=== PATIENT | female | born 1930 | race Asian ===

== ENCOUNTER 2017-10-23 06:13 | Inpatient (IN) | payer MEDICARE, OTHER ==
[2017-10-23] MEDS: SOD CHLORIDE 0.9% 1,000 ML IV (06:23)
[2017-10-23] MEDS: morphine 4 MG/ML VIAL IV ×2 (06:43→17:26)
[2017-10-23] MEDS: ONDANSETRON 4 MG INJ IV (06:43)
[2017-10-23 06:48] LABS: ADD MAN DIFF? NO
[2017-10-23 06:49] LABS: ABNORMAL IP MESSAGE 1; BASOPHILS % 0.2 % (0.0-2.0); EOSINOPHILS % 0.2 % (0.0-7.0); HEMOGLOBIN 9.7 g/dl (12.0-16.0); LYMPHOCYTES # 0.3 10^3/ul (0.8-2.9); LYMPHOCYTES % 4.3 % (15.0-51.0); MEAN CORPUSCULAR HEMOGLOBIN 32.2 pg (29.0-33.0); MEAN CORPUSCULAR HGB CONC 33.4 g/dl (32.0-37.0); MEAN CORPUSCULAR VOLUME 96.3 fl (82.0-101.0); MEAN PLATELET VOLUME 8.5 fl (7.4-10.4); MONOCYTE # 0.4 10^3/ul (0.3-0.9); MONOCYTES % 5.6 % (0.0-11.0); NEUTROPHIL # 5.6 10^3/ul (1.6-7.5); NEUTROPHILS % 88.6 % (39.0-77.0); PLATELET COUNT 279 10^3/UL (140-415); RED BLOOD COUNT 3.01 10^6/ul (4.20-5.40); RED CELL DISTRIBUTION WIDTH 13.2 % (11.5-14.5)
[2017-10-23 06:49] LABS: WHITE BLOOD COUNT 6.3 10^3/ul (4.8-10.8)
[2017-10-23 06:54] LABS: POSITIVE DIFF @See below
[2017-10-23 07:09] LABS: INR 0.81; PARTIAL THROMBOPLASTIN TIME 25.8 Sec (25.0-35.0); PROTIME 11.2 Sec (11.9-14.9); PT RATIO 0.9
[2017-10-23 07:11] LABS: ANION GAP 17 (8-16); BLOOD UREA NITROGEN 22 mg/dl (7-20); CALCIUM 9.2 mg/dl (8.4-10.2); CARBON DIOXIDE 23 mmol/L (21-31); CHLORIDE 101 mmol/L (97-110); GLUCOSE 112 mg/dl (70-220); POTASSIUM 4.5 mmol/L (3.5-5.1); SODIUM 136 mmol/L (135-144)
[2017-10-23 07:23] LABS: TROPONIN-I < 0.010 ng/ml (0.000-0.120)
[2017-10-23] MEDS ORDERED: ACETAMINOPHEN 325 MG TAB PO (11:30)
[2017-10-23] MEDS ORDERED: ONDANSETRON 4 MG INJ IV (11:30)
[2017-10-23] MEDS ORDERED: HYDROmorphONE 1 MG/ML SYG IV (18:30)
[2017-10-23] MEDS ORDERED: GLUCOSE GEL 15 GRAM TUBE PO ×2 (19:00)
[2017-10-23] MEDS ORDERED: GLUCOSE GEL 15 GRAM TUBE BUCCAL (19:00)
[2017-10-23] MEDS ORDERED: DEXTROSE 50% 50 ML SYRINGE IV ×2 (19:00)
[2017-10-23] MEDS ORDERED: GLUCAGON 1 MG INJ IM (19:00)
[2017-10-23] MEDS: INSULIN ASPART [NOVOLOG] 3 ML PEN SC (21:00)
[2017-10-24] MEDS: ACCU-CHEK XX (01:04)
[2017-10-24 05:46] LABS: ADD MAN DIFF? NO
[2017-10-24 05:56] LABS: WHITE BLOOD COUNT 5.7 10^3/ul (4.8-10.8)
[2017-10-24 05:56] LABS: ABNORMAL IP MESSAGE 1; BASOPHILS % 0.2 % (0.0-2.0); EOSINOPHILS # 0.1 10^3/ul (0.0-0.5); EOSINOPHILS % 1.4 % (0.0-7.0); HEMATOCRIT 27.5 % (37.0-47.0); HEMOGLOBIN 8.9 g/dl (12.0-16.0); LYMPHOCYTES # 0.5 10^3/ul (0.8-2.9); MEAN CORPUSCULAR HEMOGLOBIN 31.8 pg (29.0-33.0); MEAN CORPUSCULAR HGB CONC 32.4 g/dl (32.0-37.0); MEAN CORPUSCULAR VOLUME 98.2 fl (82.0-101.0); MEAN PLATELET VOLUME 8.9 fl (7.4-10.4); MONOCYTE # 0.3 10^3/ul (0.3-0.9); MONOCYTES % 5.1 % (0.0-11.0); NEUTROPHIL # 4.8 10^3/ul (1.6-7.5); NEUTROPHILS % 83.6 % (39.0-77.0); PLATELET COUNT 231 10^3/UL (140-415); RED CELL DISTRIBUTION WIDTH 13.6 % (11.5-14.5)
[2017-10-24 05:59] LABS: POSITIVE DIFF @See below
[2017-10-24 06:39] LABS: ANION GAP 11 (8-16); BLOOD UREA NITROGEN 19 mg/dl (7-20); CALCIUM 8.8 mg/dl (8.4-10.2); CARBON DIOXIDE 25 mmol/L (21-31); CHLORIDE 105 mmol/L (97-110); CREATININE 0.73 mg/dl (0.44-1.00); GLUCOSE 81 mg/dl (70-220); POTASSIUM 4.7 mmol/L (3.5-5.1); SODIUM 136 mmol/L (135-144)
[2017-10-24] MEDS: INSULIN ASPART [NOVOLOG] 3 ML PEN SC ×4 (08:15→21:00)
[2017-10-24] MEDS: BENAZEPRIL 20 MG TAB PO (08:30)
[2017-10-24] MEDS: ENOXAPARIN 30 MG/0.3 ML SYG SC (08:33)
[2017-10-24] MEDS ORDERED: HYDROmorphONE 2 MG/ML SYG IV (11:58)
[2017-10-24] MEDS: traMADol 50 MG TAB PO (14:15)
[2017-10-24 20:27] LABS: ADD MAN DIFF? NO
[2017-10-24 20:28] LABS: ABNORMAL IP MESSAGE 1; BASOPHILS % 0.3 % (0.0-2.0); EOSINOPHILS # 0.1 10^3/ul (0.0-0.5); EOSINOPHILS % 0.7 % (0.0-7.0); HEMATOCRIT 27.1 % (37.0-47.0); LYMPHOCYTES # 0.4 10^3/ul (0.8-2.9); LYMPHOCYTES % 6.1 % (15.0-51.0); MEAN CORPUSCULAR HEMOGLOBIN 32.5 pg (29.0-33.0); MEAN CORPUSCULAR HGB CONC 33.2 g/dl (32.0-37.0); MEAN CORPUSCULAR VOLUME 97.8 fl (82.0-101.0); MEAN PLATELET VOLUME 8.2 fl (7.4-10.4); MONOCYTE # 0.3 10^3/ul (0.3-0.9); MONOCYTES % 4.6 % (0.0-11.0); NEUTROPHIL # 6.4 10^3/ul (1.6-7.5); NEUTROPHILS % 87.9 % (39.0-77.0); PLATELET COUNT 217 10^3/UL (140-415); RED BLOOD COUNT 2.77 10^6/ul (4.20-5.40); RED CELL DISTRIBUTION WIDTH 13.2 % (11.5-14.5)
[2017-10-24 20:28] LABS: WHITE BLOOD COUNT 7.3 10^3/ul (4.8-10.8)
[2017-10-24 20:30] LABS: POSITIVE DIFF @See below
[2017-10-24 20:45] LABS: ALANINE AMINOTRANSFERASE 74 IU/L (13-69); ALBUMIN 3.2 g/dl (3.3-4.9); ALKALINE PHOSPHATASE 107 IU/L (42-121); ANION GAP 13 (8-16); ASPARTATE AMINO TRANSFERASE 38 IU/L (15-46); BILIRUBIN,INDIRECT 0.7 mg/dl (0-1.1); BILIRUBIN,TOTAL 0.7 mg/dl (0.2-1.3); BLOOD UREA NITROGEN 16 mg/dl (7-20); CALCIUM 8.6 mg/dl (8.4-10.2); CARBON DIOXIDE 25 mmol/L (21-31); CHLORIDE 100 mmol/L (97-110); CREATININE 0.77 mg/dl (0.44-1.00); GLUCOSE 131 mg/dl (70-220); POTASSIUM 4.6 mmol/L (3.5-5.1); SODIUM 133 mmol/L (135-144); TOTAL PROTEIN 6.1 g/dl (6.1-8.1)
[2017-10-24 20:47] LABS: INR 0.88; PT RATIO 0.9
[2017-10-24 20:48] LABS: PARTIAL THROMBOPLASTIN TIME 30.9 Sec (25.0-35.0)
[2017-10-24] MEDS: SOD CHLORIDE 0.9% 1,000 ML IV ×2 (23:32→23:39)
[2017-10-25] MEDS: ACCU-CHEK XX (01:40)
[2017-10-25 06:15] LABS: ADD MAN DIFF? NO
[2017-10-25 06:17] LABS: ABNORMAL IP MESSAGE 1; BASOPHILS % 0.1 % (0.0-2.0); EOSINOPHILS # 0.1 10^3/ul (0.0-0.5); HEMATOCRIT 28.3 % (37.0-47.0); HEMOGLOBIN 9.2 g/dl (12.0-16.0); LYMPHOCYTES # 0.5 10^3/ul (0.8-2.9); MEAN CORPUSCULAR HEMOGLOBIN 31.7 pg (29.0-33.0); MEAN CORPUSCULAR HGB CONC 32.5 g/dl (32.0-37.0); MEAN CORPUSCULAR VOLUME 97.6 fl (82.0-101.0); MEAN PLATELET VOLUME 8.9 fl (7.4-10.4); MONOCYTE # 0.3 10^3/ul (0.3-0.9); MONOCYTES % 4.3 % (0.0-11.0); NEUTROPHIL # 5.8 10^3/ul (1.6-7.5); PLATELET COUNT 231 10^3/UL (140-415); RED CELL DISTRIBUTION WIDTH 13.4 % (11.5-14.5)
[2017-10-25 06:17] LABS: WHITE BLOOD COUNT 6.7 10^3/ul (4.8-10.8)
[2017-10-25 06:50] LABS: POSITIVE DIFF @See below
[2017-10-25 06:54] LABS: ANION GAP 13 (8-16); BLOOD UREA NITROGEN 14 mg/dl (7-20); CALCIUM 8.8 mg/dl (8.4-10.2); CARBON DIOXIDE 25 mmol/L (21-31); CHLORIDE 103 mmol/L (97-110); CREATININE 0.66 mg/dl (0.44-1.00); GLUCOSE 105 mg/dl (70-220); MAGNESIUM 2.1 mg/dl (1.7-2.5); POTASSIUM 4.7 mmol/L (3.5-5.1); SODIUM 136 mmol/L (135-144)
[2017-10-25 06:59] LABS: IRON 42 ug/dl (35-150)
[2017-10-25 07:09] LABS: % IRON SATURATION 17 % SAT (22-52); TOTAL IRON BINDING CAPACITY 248 ug/dl (241-421)
[2017-10-25] MEDS: INSULIN ASPART [NOVOLOG] 3 ML PEN SC ×4 (08:04→21:00)
[2017-10-25] MEDS: BENAZEPRIL 20 MG TAB PO (08:04)
[2017-10-25] MEDS: ENOXAPARIN 30 MG/0.3 ML SYG SC (08:04)
[2017-10-25 12:13] LABS: IMMEDIATE SPIN CROSSMATCH 1 2
[2017-10-25] MEDS: SOD CHLORIDE 0.9% 1,000 ML IV ×2 (12:50)
[2017-10-26] MEDS: ACCU-CHEK XX (02:00)
[2017-10-26] MEDS: SOD CHLORIDE 0.9% 1,000 ML IV ×3 (02:10→18:44)
[2017-10-26] MEDS: FERROUS SULFATE 60 MG/ML 5ML CUP PO ×3 (06:54→17:44)
[2017-10-26] MEDS: INSULIN ASPART [NOVOLOG] 3 ML PEN SC ×4 (07:49→21:00)
[2017-10-26] MEDS: BENAZEPRIL 20 MG TAB PO (08:53)
[2017-10-26] MEDS: AMLODIPINE 5 MG TAB PO (08:53)
[2017-10-26] MEDS: ENOXAPARIN 30 MG/0.3 ML SYG SC (09:00)
[2017-10-26] MEDS: NA PHOSPHATE/BIPHOS 133 ML ENEMA PR (16:57)
[2017-10-26] MEDS: traMADol 50 MG TAB PO (17:46)
[2017-10-26] MEDS: DOCUSATE SODIUM 100 MG CAP PO (21:01)
[2017-10-27] MEDS: INSULIN ASPART [NOVOLOG] 3 ML PEN SC ×7 (01:31→21:00)
[2017-10-27] MEDS: ACCU-CHEK XX (01:31)
[2017-10-27] MEDS: SOD CHLORIDE 0.9% 1,000 ML IV ×4 (04:50→21:31)
[2017-10-27] MEDS: FERROUS SULFATE 60 MG/ML 5ML CUP PO ×3 (07:30→21:31)
[2017-10-27] MEDS: ENOXAPARIN 30 MG/0.3 ML SYG SC (08:47)
[2017-10-27] MEDS: DOCUSATE SODIUM 100 MG CAP PO ×2 (09:00→21:00)
[2017-10-27 09:05] LABS: ADD MAN DIFF? NO
[2017-10-27 09:06] LABS: ABNORMAL IP MESSAGE 1; BASOPHILS % 0.1 % (0.0-2.0); EOSINOPHILS # 0.1 10^3/ul (0.0-0.5); EOSINOPHILS % 1.3 % (0.0-7.0); HEMATOCRIT 31.4 % (37.0-47.0); HEMOGLOBIN 10.8 g/dl (12.0-16.0); LYMPHOCYTES # 0.5 10^3/ul (0.8-2.9); LYMPHOCYTES % 6.4 % (15.0-51.0); MEAN CORPUSCULAR HGB CONC 34.4 g/dl (32.0-37.0); MEAN PLATELET VOLUME 8.7 fl (7.4-10.4); MONOCYTE # 0.3 10^3/ul (0.3-0.9); NEUTROPHIL # 6.6 10^3/ul (1.6-7.5); NEUTROPHILS % 87.7 % (39.0-77.0); PLATELET COUNT 214 10^3/UL (140-415); RED BLOOD COUNT 3.27 10^6/ul (4.20-5.40); RED CELL DISTRIBUTION WIDTH 13.2 % (11.5-14.5)
[2017-10-27 09:06] LABS: WHITE BLOOD COUNT 7.5 10^3/ul (4.8-10.8)
[2017-10-27 09:09] LABS: POSITIVE DIFF @See below
[2017-10-27] MEDS ORDERED: hydrALAzine 20 MG INJ IV (17:30)
[2017-10-27] MEDS ORDERED: DIPHENHYDRAMINE 50 MG INJ IV (17:30)
[2017-10-27] MEDS ORDERED: LABETALOL HCL 20MG INJ IV (17:30)
[2017-10-27] MEDS ORDERED: FENTAnyl 50 MCG/ML VIAL (17:42)
[2017-10-27] MEDS ORDERED: MIDAZOLAM 1 MG/ML 2 ML INJ (17:42)
[2017-10-27] MEDS ORDERED: ROCURONIUM 50 MG INJ (19:14)
[2017-10-27] MEDS ORDERED: ETOMIDATE 20 MG INJ (19:14)
[2017-10-27] MEDS ORDERED: LIDOCAINE 2% (SDV) 5 ML INJ (19:14)
[2017-10-27] MEDS ORDERED: CEFAZOLIN 1 GM INJ (19:14)
[2017-10-27] MEDS ORDERED: ONDANSETRON 4 MG INJ (19:19)
[2017-10-27] MEDS ORDERED: morphine 2 MG INJ IV (19:30)
[2017-10-27] MEDS: HYDROmorphONE 1 MG/5 ML IV SYRINGE IV ×5 (19:47→20:21)
[2017-10-27] MEDS: CEFAZOLIN 1 GM/50 ML (PMX) 50 ML IVPB (20:00)
[2017-10-27 20:15] LABS: ADD MAN DIFF? NO
[2017-10-27 20:16] LABS: WHITE BLOOD COUNT 8.7 10^3/ul (4.8-10.8)
[2017-10-27 20:16] LABS: BASOPHILS % 0.1 % (0.0-2.0); EOSINOPHILS % 0.5 % (0.0-7.0); HEMATOCRIT 32.3 % (37.0-47.0); HEMOGLOBIN 10.9 g/dl (12.0-16.0); LYMPHOCYTES # 0.6 10^3/ul (0.8-2.9); LYMPHOCYTES % 7.2 % (15.0-51.0); MEAN CORPUSCULAR HGB CONC 33.7 g/dl (32.0-37.0); MEAN CORPUSCULAR VOLUME 94.7 fl (82.0-101.0); MEAN PLATELET VOLUME 8.9 fl (7.4-10.4); MONOCYTE # 0.4 10^3/ul (0.3-0.9); NEUTROPHIL # 7.6 10^3/ul (1.6-7.5); NEUTROPHILS % 87.6 % (39.0-77.0); PLATELET COUNT 200 10^3/UL (140-415); RED BLOOD COUNT 3.41 10^6/ul (4.20-5.40); RED CELL DISTRIBUTION WIDTH 13.2 % (11.5-14.5)
[2017-10-27] MEDS: ONDANSETRON 4 MG INJ IV (20:21)
[2017-10-27] MEDS: FENTAnyl 50 MCG/ML VIAL IV (20:37)
[2017-10-27] MEDS: BENAZEPRIL 20 MG TAB PO (21:30)
[2017-10-27] MEDS: AMLODIPINE 5 MG TAB PO (21:31)
[2017-10-28] MEDS: INSULIN ASPART [NOVOLOG] 3 ML PEN SC ×5 (01:00→20:40)
[2017-10-28] MEDS: ACCU-CHEK XX (01:16)
[2017-10-28] MEDS ORDERED: ACCU-CHEK XX (02:00)
[2017-10-28] MEDS: SOD CHLORIDE 0.9% 1,000 ML IV ×3 (04:31→23:43)
[2017-10-28 05:55] LABS: ADD MAN DIFF? NO
[2017-10-28 06:04] LABS: WHITE BLOOD COUNT 6.7 10^3/ul (4.8-10.8)
[2017-10-28 06:04] LABS: ABNORMAL IP MESSAGE 1; BASOPHILS % 0.1 % (0.0-2.0); EOSINOPHILS % 0.4 % (0.0-7.0); HEMOGLOBIN 9.4 g/dl (12.0-16.0); LYMPHOCYTES # 0.4 10^3/ul (0.8-2.9); LYMPHOCYTES % 5.7 % (15.0-51.0); MEAN CORPUSCULAR HGB CONC 33.6 g/dl (32.0-37.0); MEAN CORPUSCULAR VOLUME 95.2 fl (82.0-101.0); MEAN PLATELET VOLUME 9.2 fl (7.4-10.4); MONOCYTE # 0.3 10^3/ul (0.3-0.9); MONOCYTES % 5.1 % (0.0-11.0); NEUTROPHIL # 5.9 10^3/ul (1.6-7.5); NEUTROPHILS % 88.1 % (39.0-77.0); PLATELET COUNT 178 10^3/UL (140-415); RED BLOOD COUNT 2.94 10^6/ul (4.20-5.40); RED CELL DISTRIBUTION WIDTH 13.1 % (11.5-14.5)
[2017-10-28 06:20] LABS: POSITIVE DIFF @See below
[2017-10-28 06:36] LABS: ALBUMIN 2.7 g/dl (3.3-4.9); ANION GAP 10 (8-16); BLOOD UREA NITROGEN 9 mg/dl (7-20); CALCIUM 8.1 mg/dl (8.4-10.2); CARBON DIOXIDE 22 mmol/L (21-31); CHLORIDE 106 mmol/L (97-110); CREATININE 0.53 mg/dl (0.44-1.00); GLUCOSE 83 mg/dl (70-220); MAGNESIUM 1.5 mg/dl (1.7-2.5); POTASSIUM 3.7 mmol/L (3.5-5.1); SODIUM 134 mmol/L (135-144)
[2017-10-28] MEDS: CEFAZOLIN 1 GM/50 ML (PMX) 50 ML IVPB (08:15)
[2017-10-28] MEDS: DOCUSATE SODIUM 100 MG CAP PO ×2 (08:16→20:36)
[2017-10-28] MEDS: BENAZEPRIL 20 MG TAB PO (08:16)
[2017-10-28] MEDS: AMLODIPINE 5 MG TAB PO (08:16)
[2017-10-28] MEDS: ENOXAPARIN 30 MG/0.3 ML SYG SC (08:18)
[2017-10-28] MEDS: FERROUS SULFATE 60 MG/ML 5ML CUP PO ×3 (08:31→16:27)
[2017-10-28] MEDS ORDERED: ENOXAPARIN 40 MG/0.4 ML SYG SC (09:00)
[2017-10-28] MEDS: traMADol 50 MG TAB PO (12:50)
[2017-10-28] MEDS ORDERED: morphine LIQ (10 MG/5 ML) CUP PO (16:30)
[2017-10-28] MEDS: ALBUMIN HUMAN 25% 100 ML IV ×2 (18:41→20:34)
[2017-10-28] MEDS: THIAMINE 100 MG TAB PO (18:56)
[2017-10-28] MEDS: MEGESTROL (40 MG/ML) 10ML CUP PO (20:36)
[2017-10-28] MEDS: CALCIUM GLUCONATE 10% 2 GM in DEXTROSE 5% 100 ML IVPB (21:55)
[2017-10-28] MEDS: MAGNESIUM SULFATE 2 GM/50 ML 50 ML IVPB (23:42)
[2017-10-29] MEDS: ACCU-CHEK XX (01:08)
[2017-10-29 06:10] LABS: HEMATOCRIT 22.4 % (37.0-47.0); HEMOGLOBIN 7.5 g/dl (12.0-16.0)
[2017-10-29 06:42] LABS: ANION GAP 11 (8-16); BLOOD UREA NITROGEN 8 mg/dl (7-20); CALCIUM 8.6 mg/dl (8.4-10.2); CARBON DIOXIDE 24 mmol/L (21-31); CHLORIDE 107 mmol/L (97-110); CREATININE 0.55 mg/dl (0.44-1.00); GLUCOSE 127 mg/dl (70-220); MAGNESIUM 2.7 mg/dl (1.7-2.5); POTASSIUM 3.5 mmol/L (3.5-5.1); SODIUM 138 mmol/L (135-144)
[2017-10-29] MEDS: INSULIN ASPART [NOVOLOG] 3 ML PEN SC ×4 (07:48→20:43)
[2017-10-29] MEDS: FERROUS SULFATE 60 MG/ML 5ML CUP PO ×3 (07:48→17:23)
[2017-10-29] MEDS: THIAMINE 100 MG TAB PO (08:25)
[2017-10-29] MEDS: MEGESTROL (40 MG/ML) 10ML CUP PO ×2 (08:25→20:10)
[2017-10-29] MEDS: DOCUSATE SODIUM 100 MG CAP PO ×2 (08:25→20:10)
[2017-10-29] MEDS: AMLODIPINE 5 MG TAB PO (08:26)
[2017-10-29] MEDS: ENOXAPARIN 30 MG/0.3 ML SYG SC (08:27)
[2017-10-29] MEDS: FOLIC ACID 1 MG TAB PO (08:34)
[2017-10-29] MEDS: BENAZEPRIL 10 MG TAB PO (08:34)
[2017-10-29] MEDS: traMADol 50 MG TAB PO (10:06)
[2017-10-29] MEDS: SOD CHLORIDE 0.9% 1,000 ML IV (17:23)
[2017-10-29 17:54] LABS: IMMEDIATE SPIN CROSSMATCH 1 2
[2017-10-30] MEDS: ACCU-CHEK XX (02:06)
[2017-10-30] MEDS: SOD CHLORIDE 0.9% 1,000 ML IV (02:06)
[2017-10-30] MEDS: INSULIN ASPART [NOVOLOG] 3 ML PEN SC ×4 (07:49→20:21)
[2017-10-30] MEDS: MEGESTROL (40 MG/ML) 10ML CUP PO ×2 (08:26→20:21)
[2017-10-30] MEDS: FERROUS SULFATE 60 MG/ML 5ML CUP PO ×3 (08:26→17:21)
[2017-10-30] MEDS: FOLIC ACID 1 MG TAB PO (08:28)
[2017-10-30] MEDS: DOCUSATE SODIUM 100 MG CAP PO ×2 (08:28→20:21)
[2017-10-30] MEDS: AMLODIPINE 5 MG TAB PO (08:29)
[2017-10-30] MEDS: THIAMINE 100 MG TAB PO (08:29)
[2017-10-30] MEDS: BENAZEPRIL 10 MG TAB PO (08:29)
[2017-10-30] MEDS: ENOXAPARIN 30 MG/0.3 ML SYG SC (08:36)
[2017-10-30] MEDS: traMADol 50 MG TAB PO (09:31)
[2017-10-30 11:37] LABS: HEMATOCRIT 35.9 % (37.0-47.0); HEMOGLOBIN 12.3 g/dl (12.0-16.0)
[2017-10-30] MEDS: HYDROCODONE/APAP (5/325) TAB PO (23:48)
[2017-10-31] MEDS: ACCU-CHEK XX (02:00)
[2017-10-31 06:32] LABS: HEMATOCRIT 33.7 % (37.0-47.0); HEMOGLOBIN 11.5 g/dl (12.0-16.0)
[2017-10-31 07:02] LABS: ALBUMIN 2.8 g/dl (3.3-4.9); ANION GAP 11 (8-16); BLOOD UREA NITROGEN 12 mg/dl (7-20); CALCIUM 8.3 mg/dl (8.4-10.2); CARBON DIOXIDE 22 mmol/L (21-31); CHLORIDE 109 mmol/L (97-110); CREATININE 0.45 mg/dl (0.44-1.00); GLUCOSE 114 mg/dl (70-220); MAGNESIUM 1.8 mg/dl (1.7-2.5); POTASSIUM 3.9 mmol/L (3.5-5.1); SODIUM 138 mmol/L (135-144)
[2017-10-31] MEDS: INSULIN ASPART [NOVOLOG] 3 ML PEN SC ×2 (07:59→12:15)
[2017-10-31] MEDS: MEGESTROL (40 MG/ML) 10ML CUP PO (08:27)
[2017-10-31] MEDS: FERROUS SULFATE 60 MG/ML 5ML CUP PO ×2 (08:27→12:15)
[2017-10-31] MEDS: ENOXAPARIN 30 MG/0.3 ML SYG SC (08:28)
[2017-10-31] MEDS: FOLIC ACID 1 MG TAB PO (08:29)
[2017-10-31] MEDS: BENAZEPRIL 10 MG TAB PO (08:29)
[2017-10-31] MEDS: DOCUSATE SODIUM 100 MG CAP PO (08:29)
[2017-10-31] MEDS: THIAMINE 100 MG TAB PO (08:29)
[2017-10-31] MEDS: AMLODIPINE 5 MG TAB PO (08:30)
== END 2017-10-31 14:35 | DRG 481 ==
LOC: E/R 06:13 → MS2 11:17
PROC: 0QS604Z Reposition Right Upper Femur with Internal Fixation Device, Open Approach (ICD-10-PCS; principal; 2017-10-27 14:00)
PROC: 30233N1 Transfusion of Nonautologous Red Blood Cells into Peripheral Vein, Percutaneous Approach (ICD-10-PCS; 2017-10-27 17:25)
DX: S72.115A Nondisplaced fracture of greater trochanter of left femur, initial encounter for closed fracture (principal); Z68.1 Body mass index [BMI] 19.9 or less, adult; I10 Essential (primary) hypertension; D64.9 Anemia, unspecified; E11.9 Type 2 diabetes mellitus without complications; W18.30XA Fall on same level, unspecified, initial encounter; Y93.01 Activity, walking, marching and hiking; Y92.009 Unspecified place in unspecified non-institutional (private) residence as the place of occurrence of the external cause; F32.9 Major depressive disorder, single episode, unspecified; R63.6 Underweight
CPT/HCPCS: 36415; 36430; 71045; 72170; 73500; 73530; 73550; 73700; 80048; 80053; 82040; 82962; 83540; 83735; 84484; 85014; 85018; 85025; 85610; 85730; 86850; 86900; 86901; 86920; 93005; 96361; 96374; 96375; 97110; 97116; 97162; 97530; 99285-25

== ENCOUNTER 2018-01-01 08:02 | Inpatient (IN) | payer MEDICARE, OTHER ==
[2018-01-01] MEDS: SODIUM CHLORIDE 0.9% 1L BAG IV* (08:53)
[2018-01-01] MEDS: ONDANSETRON 4 MG INJ IV (08:54)
[2018-01-01] MEDS: morphine 4 MG/ML VIAL IV (08:54)
[2018-01-01 09:32] LABS: ADD MAN DIFF? NO
[2018-01-01 09:38] LABS: ABNORMAL IP MESSAGE 1; BASOPHILS % 0.2 % (0.0-2.0); HEMATOCRIT 28.5 % (37.0-47.0); HEMOGLOBIN 9.5 g/dl (12.0-16.0); LYMPHOCYTES # 0.3 10^3/ul (0.8-2.9); LYMPHOCYTES % 2.3 % (15.0-51.0); MEAN CORPUSCULAR HEMOGLOBIN 31.8 pg (29.0-33.0); MEAN CORPUSCULAR HGB CONC 33.3 g/dl (32.0-37.0); MEAN CORPUSCULAR VOLUME 95.3 fl (82.0-101.0); MEAN PLATELET VOLUME 8.7 fl (7.4-10.4); MONOCYTE # 0.6 10^3/ul (0.3-0.9); MONOCYTES % 4.6 % (0.0-11.0); NEUTROPHIL # 11.4 10^3/ul (1.6-7.5); NEUTROPHILS % 91.9 % (39.0-77.0); PLATELET COUNT 438 10^3/UL (140-415); RED BLOOD COUNT 2.99 10^6/ul (4.20-5.40); RED CELL DISTRIBUTION WIDTH 15.1 % (11.5-14.5)
[2018-01-01 09:38] LABS: WHITE BLOOD COUNT 12.4 10^3/ul (4.8-10.8)
[2018-01-01 09:43] LABS: POSITIVE DIFF @See below
[2018-01-01 09:57] LABS: INR 0.98; PARTIAL THROMBOPLASTIN TIME 31.6 Sec (25.0-35.0); PROTIME 13.1 Sec (11.9-14.9)
[2018-01-01 10:06] LABS: LACTIC ACID 2.9 mmol/L (0.5-2.0)
[2018-01-01 10:06] LABS: ANION GAP 15 (8-16); BLOOD UREA NITROGEN 22 mg/dl (7-20); CALCIUM 9.1 mg/dl (8.4-10.2); CARBON DIOXIDE 25 mmol/L (21-31); CHLORIDE 98 mmol/L (97-110); CREATININE 0.76 mg/dl (0.44-1.00); GLUCOSE 233 mg/dl (70-220); POTASSIUM 4.5 mmol/L (3.5-5.1); SODIUM 133 mmol/L (135-144)
[2018-01-01 10:13] LABS: TROPONIN-I < 0.012 ng/ml (0.000-0.120)
[2018-01-01] MEDS: CEFEPIME 1GM/50 ML (PMX) 50 ML IVPB (10:18)
[2018-01-01] MEDS: VANCOMYCIN 1 GM (PMX) 250 ML IVPB (11:07)
[2018-01-01] MEDS ORDERED: ACETAMINOPHEN 325 MG TAB PO (11:30)
[2018-01-01] MEDS ORDERED: ONDANSETRON 4 MG INJ IV (11:30)
[2018-01-01 13:00] LABS: LACTIC ACID 1.5 mmol/L (0.5-2.0)
[2018-01-01 15:26] LABS: LACTIC ACID 1.3 mmol/L (0.5-2.0)
[2018-01-01] MEDS: LOSARTAN 25 MG TAB PO (15:30)
[2018-01-01] MEDS ORDERED: DEXTROSE 50% 50 ML SYRINGE IV ×2 (17:00)
[2018-01-01] MEDS ORDERED: GLUCOSE GEL 15 GRAM TUBE PO ×2 (17:00)
[2018-01-01] MEDS ORDERED: GLUCOSE GEL 15 GRAM TUBE BUCCAL (17:00)
[2018-01-01] MEDS ORDERED: GLUCAGON 1 MG INJ IM (17:00)
[2018-01-01] MEDS: INSULIN ASPART [NOVOLOG] 3 ML PEN SC (19:12)
[2018-01-01] MEDS: MEGESTROL 40 MG TAB PO (19:14)
[2018-01-01] MEDS: DONEPEZIL 5 MG TAB PO (19:15)
[2018-01-01] MEDS: SOD CHLORIDE 0.9% 1,000 ML IV (19:18)
[2018-01-01] MEDS: SOD CHLORIDE 0.9% 100 ML (21:34)
[2018-01-01] MEDS: IOHEXOL 300MG/ML 150 ML BTL (21:35)
[2018-01-02] MEDS: GUAIFENESIN/DM 5ML CUP PO ×2 (02:03→10:37)
[2018-01-02] MEDS: traMADol 50 MG TAB PO ×2 (02:03→10:37)
[2018-01-02] MEDS: SOD CHLORIDE 0.9% 1,000 ML IV ×2 (05:50→10:39)
[2018-01-02] MEDS: PANTOPRAZOLE (EC) 40 MG TAB PO (06:10)
[2018-01-02 07:13] LABS: ADD MAN DIFF? NO
[2018-01-02 07:18] LABS: WHITE BLOOD COUNT 7.3 10^3/ul (4.8-10.8)
[2018-01-02 07:18] LABS: ABNORMAL IP MESSAGE 1; BASOPHILS % 0.4 % (0.0-2.0); EOSINOPHILS % 0.3 % (0.0-7.0); HEMATOCRIT 26.4 % (37.0-47.0); HEMOGLOBIN 8.5 g/dl (12.0-16.0); LYMPHOCYTES # 0.6 10^3/ul (0.8-2.9); LYMPHOCYTES % 7.5 % (15.0-51.0); MEAN CORPUSCULAR HEMOGLOBIN 31.7 pg (29.0-33.0); MEAN CORPUSCULAR HGB CONC 32.2 g/dl (32.0-37.0); MEAN CORPUSCULAR VOLUME 98.5 fl (82.0-101.0); MEAN PLATELET VOLUME 8.9 fl (7.4-10.4); MONOCYTE # 0.4 10^3/ul (0.3-0.9); MONOCYTES % 5.9 % (0.0-11.0); NEUTROPHIL # 6.2 10^3/ul (1.6-7.5); NEUTROPHILS % 85.2 % (39.0-77.0); PLATELET COUNT 368 10^3/UL (140-415); RED BLOOD COUNT 2.68 10^6/ul (4.20-5.40); RED CELL DISTRIBUTION WIDTH 15.2 % (11.5-14.5)
[2018-01-02 07:27] LABS: POSITIVE DIFF @See below
[2018-01-02] MEDS: INSULIN ASPART [NOVOLOG] 3 ML PEN SC ×2 (08:00→17:49)
[2018-01-02 08:07] LABS: ALBUMIN 2.9 g/dl (3.3-4.9); ANION GAP 14 (8-16); BLOOD UREA NITROGEN 17 mg/dl (7-20); CALCIUM 8.3 mg/dl (8.4-10.2); CARBON DIOXIDE 21 mmol/L (21-31); CHLORIDE 102 mmol/L (97-110); GLUCOSE 108 mg/dl (70-220); SODIUM 133 mmol/L (135-144)
[2018-01-02] MEDS: MEGESTROL 40 MG TAB PO (10:37)
[2018-01-02] MEDS: LOSARTAN 25 MG TAB PO (10:38)
[2018-01-02] MEDS: DONEPEZIL 5 MG TAB PO (10:38)
[2018-01-02] MEDS: CALCIUM CARBONATE 500 MG CHEW TAB PO (18:36)
[2018-01-02] MEDS: OLANZAPINE 2.5 MG TAB PO (18:38)
[2018-01-02] MEDS: EPOETIN 10000 UNITS/ML VIAL (ONCOLOGY) SC (18:38)
[2018-01-03] MEDS: SOD CHLORIDE 0.9% 1,000 ML IV (00:55)
[2018-01-03] MEDS: PANTOPRAZOLE (EC) 40 MG TAB PO ×2 (05:36→06:00)
[2018-01-03] MEDS: traMADol 50 MG TAB PO ×2 (05:36→08:32)
[2018-01-03 07:48] LABS: ADD MAN DIFF? NO
[2018-01-03 07:57] LABS: ABNORMAL IP MESSAGE 1; BASOPHILS % 0.2 % (0.0-2.0); EOSINOPHILS % 0.2 % (0.0-7.0); HEMATOCRIT 28.6 % (37.0-47.0); HEMOGLOBIN 9.2 g/dl (12.0-16.0); LYMPHOCYTES # 0.5 10^3/ul (0.8-2.9); LYMPHOCYTES % 4.4 % (15.0-51.0); MEAN CORPUSCULAR HEMOGLOBIN 31.6 pg (29.0-33.0); MEAN CORPUSCULAR HGB CONC 32.2 g/dl (32.0-37.0); MEAN CORPUSCULAR VOLUME 98.3 fl (82.0-101.0); MEAN PLATELET VOLUME 8.9 fl (7.4-10.4); MONOCYTE # 0.5 10^3/ul (0.3-0.9); MONOCYTES % 4.9 % (0.0-11.0); NEUTROPHIL # 9.4 10^3/ul (1.6-7.5); NEUTROPHILS % 89.9 % (39.0-77.0); PLATELET COUNT 375 10^3/UL (140-415); RED BLOOD COUNT 2.91 10^6/ul (4.20-5.40); RED CELL DISTRIBUTION WIDTH 14.9 % (11.5-14.5)
[2018-01-03 07:57] LABS: WHITE BLOOD COUNT 10.5 10^3/ul (4.8-10.8)
[2018-01-03 07:58] LABS: POSITIVE DIFF @See below
[2018-01-03 08:22] LABS: ANION GAP 11 (8-16); BLOOD UREA NITROGEN 19 mg/dl (7-20); CALCIUM 8.4 mg/dl (8.4-10.2); CARBON DIOXIDE 22 mmol/L (21-31); CHLORIDE 103 mmol/L (97-110); CREATININE 0.57 mg/dl (0.44-1.00); GLUCOSE 205 mg/dl (70-220); POTASSIUM 4.2 mmol/L (3.5-5.1); SODIUM 132 mmol/L (135-144)
[2018-01-03] MEDS: MEGESTROL 40 MG TAB PO (08:26)
[2018-01-03] MEDS: OLANZAPINE 2.5 MG TAB PO (08:26)
[2018-01-03] MEDS: CALCIUM CARBONATE 500 MG CHEW TAB PO ×3 (08:26→18:16)
[2018-01-03] MEDS: LOSARTAN 25 MG TAB PO (08:27)
[2018-01-03] MEDS: DONEPEZIL 5 MG TAB PO (08:27)
[2018-01-03] MEDS: INSULIN ASPART [NOVOLOG] 3 ML PEN SC ×2 (08:28→18:06)
[2018-01-03] MEDS: GUAIFENESIN/DM 5ML CUP PO ×2 (08:32→18:16)
[2018-01-03] MEDS: HALOPERIDOL 0.5 MG TAB PO (13:02)
[2018-01-03] MEDS ORDERED: DEXTROSE 5%-0.225% NACL 1,000 ML IV (15:30)
[2018-01-03] MEDS ORDERED: LORAZEPAM 0.5 MG TAB PO (15:30)
[2018-01-03] MEDS: DEXTROSE 5%-0.9% NACL 1,000 ML IV ×2 (16:03→20:29)
[2018-01-03] MEDS: PIPER-TAZO 3.375 GM IV (PMX) 100 ML IVPB ×2 (16:04→21:04)
[2018-01-03] MEDS: FUROSEMIDE 20 MG INJ IV (18:00)
[2018-01-04] MEDS: DEXTROSE 5%-0.9% NACL 1,000 ML IV ×3 (04:50→19:30)
[2018-01-04] MEDS: FUROSEMIDE 20 MG INJ IV ×2 (06:00→17:53)
[2018-01-04] MEDS: PANTOPRAZOLE (EC) 40 MG TAB PO (06:10)
[2018-01-04 06:52] LABS: ADD MAN DIFF? NO
[2018-01-04 06:57] LABS: BASOPHILS % 0.2 % (0.0-2.0); EOSINOPHILS # 0.1 10^3/ul (0.0-0.5); EOSINOPHILS % 0.6 % (0.0-7.0); HEMATOCRIT 27.8 % (37.0-47.0); LYMPHOCYTES # 1.3 10^3/ul (0.8-2.9); LYMPHOCYTES % 12.8 % (15.0-51.0); MEAN CORPUSCULAR HGB CONC 32.4 g/dl (32.0-37.0); MEAN CORPUSCULAR VOLUME 98.9 fl (82.0-101.0); MEAN PLATELET VOLUME 9.1 fl (7.4-10.4); MONOCYTE # 0.5 10^3/ul (0.3-0.9); MONOCYTES % 5.3 % (0.0-11.0); NEUTROPHIL # 7.9 10^3/ul (1.6-7.5); NEUTROPHILS % 80.7 % (39.0-77.0); PLATELET COUNT 394 10^3/UL (140-415); RED BLOOD COUNT 2.81 10^6/ul (4.20-5.40)
[2018-01-04 06:57] LABS: WHITE BLOOD COUNT 9.8 10^3/ul (4.8-10.8)
[2018-01-04 07:22] LABS: ANION GAP 16 (8-16); BLOOD UREA NITROGEN 19 mg/dl (7-20); CALCIUM 8.2 mg/dl (8.4-10.2); CARBON DIOXIDE 18 mmol/L (21-31); CHLORIDE 106 mmol/L (97-110); CREATININE 0.67 mg/dl (0.44-1.00); GLUCOSE 172 mg/dl (70-220); MAGNESIUM 1.8 mg/dl (1.7-2.5); PHOSPHORUS 3.2 mg/dl (2.5-4.9); POTASSIUM 4.7 mmol/L (3.5-5.1); SODIUM 135 mmol/L (135-144)
[2018-01-04 07:25] LABS: LACTIC ACID 1.1 mmol/L (0.5-2.0)
[2018-01-04 08:56] LABS: B-TYPE NATRIURETIC PEPTIDE 12100 PG/ML (0-450)
[2018-01-04] MEDS: CALCIUM CARBONATE 500 MG CHEW TAB PO ×3 (09:03→18:03)
[2018-01-04] MEDS: DONEPEZIL 5 MG TAB PO (09:03)
[2018-01-04] MEDS: MEGESTROL 40 MG TAB PO (09:03)
[2018-01-04] MEDS: INSULIN ASPART [NOVOLOG] 3 ML PEN SC ×2 (09:07→18:00)
[2018-01-04] MEDS: IODIXANOL LOCM 100 ML BTL (12:44)
[2018-01-04] MEDS: SOD CHLORIDE 0.9% 100 ML (12:44)
[2018-01-04] MEDS: LIDOCAINE 1% (MPF) 5 ML VIAL (13:15)
[2018-01-04] MEDS: PIPER-TAZO 3.375 GM IV (PMX) 100 ML IVPB ×2 (13:41→20:42)
[2018-01-04 14:04] LABS: FLD MN% 6.3 %; FLD PMN% 93.7 %; FLD RBC 2000 /uL; FLD WBC 4386 /cmm
[2018-01-04 14:23] LABS: FLUID TYPE PLEURAL FLUID
[2018-01-04 14:24] LABS: FLUID GLUCOSE 153 mg/dl; FLUID TYPE PLEURAL FLUID
[2018-01-04 14:24] LABS: FLD TYPE THORACENTHESIS
[2018-01-04 14:25] LABS: FLD CLARITY CLOUDY; FLD COLOR YELLOW
[2018-01-04 15:17] LABS: FLUID LD 3556 U/L
[2018-01-05] MEDS: LORAZEPAM 2 MG INJ IV (03:14)
[2018-01-05] MEDS: FUROSEMIDE 20 MG INJ IV ×2 (05:48→18:13)
[2018-01-05] MEDS: PANTOPRAZOLE (EC) 40 MG TAB PO (06:00)
[2018-01-05 06:10] LABS: ADD MAN DIFF? NO
[2018-01-05 06:19] LABS: ABNORMAL IP MESSAGE 1; BASOPHILS % 0.2 % (0.0-2.0); EOSINOPHILS % 0.3 % (0.0-7.0); HEMATOCRIT 25.3 % (37.0-47.0); HEMOGLOBIN 8.1 g/dl (12.0-16.0); LYMPHOCYTES # 0.5 10^3/ul (0.8-2.9); LYMPHOCYTES % 4.8 % (15.0-51.0); MEAN CORPUSCULAR HEMOGLOBIN 31.8 pg (29.0-33.0); MEAN CORPUSCULAR VOLUME 99.2 fl (82.0-101.0); MEAN PLATELET VOLUME 9.1 fl (7.4-10.4); MONOCYTE # 0.5 10^3/ul (0.3-0.9); MONOCYTES % 5.3 % (0.0-11.0); NEUTROPHIL # 8.8 10^3/ul (1.6-7.5); NEUTROPHILS % 88.9 % (39.0-77.0); PLATELET COUNT 331 10^3/UL (140-415); RED BLOOD COUNT 2.55 10^6/ul (4.20-5.40); RED CELL DISTRIBUTION WIDTH 15.2 % (11.5-14.5)
[2018-01-05 06:19] LABS: WHITE BLOOD COUNT 9.8 10^3/ul (4.8-10.8)
[2018-01-05 06:41] LABS: POSITIVE DIFF @See below
[2018-01-05 06:55] LABS: ANION GAP 11 (8-16); BLOOD UREA NITROGEN 22 mg/dl (7-20); CARBON DIOXIDE 19 mmol/L (21-31); CHLORIDE 110 mmol/L (97-110); CREATININE 0.88 mg/dl (0.44-1.00); GLUCOSE 227 mg/dl (70-220); SODIUM 136 mmol/L (135-144)
[2018-01-05 07:01] LABS: LACTATE DEHYDROGENASE 736 IU/L (313-618)
[2018-01-05 07:07] LABS: B-TYPE NATRIURETIC PEPTIDE 23600 PG/ML (0-450)
[2018-01-05] MEDS: DEXTROSE 5%-0.9% NACL 1,000 ML IV ×2 (07:30→13:07)
[2018-01-05] MEDS: INSULIN ASPART [NOVOLOG] 3 ML PEN SC ×2 (07:55→18:23)
[2018-01-05] MEDS: PIPER-TAZO 3.375 GM IV (PMX) 100 ML IVPB (08:39)
[2018-01-05] MEDS: BARIUM SULF 2% 450 ML BTL (BERRY SMOOTHIE) PO (09:30)
[2018-01-05 09:40] LABS: IRON 29 ug/dl (35-150)
[2018-01-05 09:51] LABS: % IRON SATURATION 19 % SAT (22-52); TOTAL IRON BINDING CAPACITY 156 ug/dl (241-421)
[2018-01-05] MEDS: MEGESTROL 40 MG TAB PO (09:56)
[2018-01-05] MEDS: DONEPEZIL 5 MG TAB PO (09:56)
[2018-01-05] MEDS: CALCIUM CARBONATE 500 MG CHEW TAB PO ×3 (09:56→18:13)
[2018-01-05] MEDS: traMADol 50 MG TAB PO (10:03)
[2018-01-05 10:57] LABS: FOLATE > 20.0 ng/ml (2.8-20.0)
[2018-01-05] MEDS: PIPER-TAZO 2.25 GM (PMX) 50 ML IVPB ×2 (18:13→23:41)
[2018-01-06] MEDS: DEXTROSE 5%-0.9% NACL 1,000 ML IV ×3 (04:21→20:24)
[2018-01-06] MEDS: PIPER-TAZO 2.25 GM (PMX) 50 ML IVPB ×3 (05:53→17:08)
[2018-01-06] MEDS: PANTOPRAZOLE (EC) 40 MG TAB PO (06:17)
[2018-01-06] MEDS: FUROSEMIDE 20 MG INJ IV ×2 (06:18→17:08)
[2018-01-06 06:49] LABS: ADD MAN DIFF? NO
[2018-01-06 07:04] LABS: ABNORMAL IP MESSAGE 1; BASOPHILS % 0.1 % (0.0-2.0); EOSINOPHILS % 0.1 % (0.0-7.0); HEMATOCRIT 25.4 % (37.0-47.0); HEMOGLOBIN 8.1 g/dl (12.0-16.0); LYMPHOCYTES # 0.4 10^3/ul (0.8-2.9); LYMPHOCYTES % 3.3 % (15.0-51.0); MEAN CORPUSCULAR HEMOGLOBIN 31.9 pg (29.0-33.0); MEAN CORPUSCULAR HGB CONC 31.9 g/dl (32.0-37.0); MEAN PLATELET VOLUME 9.4 fl (7.4-10.4); MONOCYTE # 0.6 10^3/ul (0.3-0.9); MONOCYTES % 5.4 % (0.0-11.0); NEUTROPHIL # 10.6 10^3/ul (1.6-7.5); NEUTROPHILS % 90.3 % (39.0-77.0); PLATELET COUNT 321 10^3/UL (140-415); RED BLOOD COUNT 2.54 10^6/ul (4.20-5.40)
[2018-01-06 07:04] LABS: WHITE BLOOD COUNT 11.8 10^3/ul (4.8-10.8)
[2018-01-06 07:12] LABS: POSITIVE DIFF @See below
[2018-01-06 07:40] LABS: ALANINE AMINOTRANSFERASE 21 IU/L (13-69); ALBUMIN 2.2 g/dl (3.3-4.9); ALBUMIN/GLOBULIN RATIO 0.78; ALKALINE PHOSPHATASE 68 IU/L (42-121); ANION GAP 13 (8-16); ASPARTATE AMINO TRANSFERASE 13 IU/L (15-46); BILIRUBIN,INDIRECT 0.3 mg/dl (0-1.1); BILIRUBIN,TOTAL 0.3 mg/dl (0.2-1.3); BLOOD UREA NITROGEN 23 mg/dl (7-20); CALCIUM 8.3 mg/dl (8.4-10.2); CARBON DIOXIDE 20 mmol/L (21-31); CHLORIDE 108 mmol/L (97-110); CREATININE 0.92 mg/dl (0.44-1.00); GLUCOSE 282 mg/dl (70-220); MAGNESIUM 1.6 mg/dl (1.7-2.5); POTASSIUM 3.3 mmol/L (3.5-5.1); SODIUM 138 mmol/L (135-144)
[2018-01-06] MEDS: traMADol 50 MG TAB PO (07:55)
[2018-01-06] MEDS: MEGESTROL 40 MG TAB PO (07:55)
[2018-01-06] MEDS: DONEPEZIL 5 MG TAB PO (07:55)
[2018-01-06] MEDS: CALCIUM CARBONATE 500 MG CHEW TAB PO ×3 (07:55→17:07)
[2018-01-06] MEDS: INSULIN ASPART [NOVOLOG] 3 ML PEN SC ×3 (08:07→17:14)
[2018-01-06] MEDS ORDERED: TPN 1,000 ML IV (14:51)
[2018-01-06] MEDS ORDERED: FAT EMULSION 20% 250 ML IV (15:00)
[2018-01-06] MEDS: LORAZEPAM 2 MG INJ IV (15:20)
[2018-01-06] MEDS: LIDOCAINE 1% (MPF) 5 ML VIAL SC ×2 (15:37→16:00)
[2018-01-06 16:41] LABS: ALANINE AMINOTRANSFERASE 19 IU/L (13-69); ALBUMIN 2.1 g/dl (3.3-4.9); ALBUMIN/GLOBULIN RATIO 0.77; ALKALINE PHOSPHATASE 67 IU/L (42-121); ANION GAP 11 (8-16); ASPARTATE AMINO TRANSFERASE 15 IU/L (15-46); BILIRUBIN,INDIRECT 0.2 mg/dl (0-1.1); BILIRUBIN,TOTAL 0.2 mg/dl (0.2-1.3); BLOOD UREA NITROGEN 22 mg/dl (7-20); CALCIUM 8.1 mg/dl (8.4-10.2); CARBON DIOXIDE 20 mmol/L (21-31); CHLORIDE 107 mmol/L (97-110); CREATININE 0.85 mg/dl (0.44-1.00); GLUCOSE 286 mg/dl (70-220); MAGNESIUM 1.5 mg/dl (1.7-2.5); PHOSPHORUS 3.3 mg/dl (2.5-4.9); SODIUM 135 mmol/L (135-144); TOTAL PROTEIN 4.8 g/dl (6.1-8.1); TRIGLYCERIDES 70 mg/dl (0-149)
[2018-01-06 16:43] LABS: POTASSIUM 2.9 mmol/L (3.5-5.1)
[2018-01-06] MEDS: IOHEXOL 300MG/ML 150 ML BTL (16:59)
[2018-01-06] MEDS: SOD CHLORIDE 0.9% 100 ML (16:59)
[2018-01-06] MEDS: ACCU-CHEK XX ×2 (17:00→20:29)
[2018-01-06 17:22] LABS: PREALBUMIN 3.2 mg/dl (17.6-36.0)
[2018-01-06] MEDS: POTASSIUM CHLORIDE 50 ML IVPB ×3 (17:54→21:30)
[2018-01-07] MEDS: PIPER-TAZO 2.25 GM (PMX) 50 ML IVPB ×4 (00:10→20:14)
[2018-01-07] MEDS: ACCU-CHEK XX ×6 (01:00→20:38)
[2018-01-07] MEDS: PANTOPRAZOLE (EC) 40 MG TAB PO (04:09)
[2018-01-07] MEDS: FUROSEMIDE 20 MG INJ IV ×3 (05:34→20:15)
[2018-01-07] MEDS: LEVALBUTEROL (NEB) 0.63 MG/3 ML AMP HHN (06:12)
[2018-01-07 06:31] LABS: ADD MAN DIFF? NO
[2018-01-07 06:34] LABS: BASOPHILS % 0.2 % (0.0-2.0); EOSINOPHILS # 0.1 10^3/ul (0.0-0.5); EOSINOPHILS % 0.6 % (0.0-7.0); HEMATOCRIT 26.4 % (37.0-47.0); HEMOGLOBIN 8.4 g/dl (12.0-16.0); LYMPHOCYTES # 1.4 10^3/ul (0.8-2.9); LYMPHOCYTES % 11.1 % (15.0-51.0); MEAN CORPUSCULAR HEMOGLOBIN 31.5 pg (29.0-33.0); MEAN CORPUSCULAR HGB CONC 31.8 g/dl (32.0-37.0); MEAN CORPUSCULAR VOLUME 98.9 fl (82.0-101.0); MEAN PLATELET VOLUME 9.3 fl (7.4-10.4); MONOCYTE # 0.7 10^3/ul (0.3-0.9); MONOCYTES % 5.3 % (0.0-11.0); NEUTROPHIL # 10.2 10^3/ul (1.6-7.5); NEUTROPHILS % 82.2 % (39.0-77.0); PLATELET COUNT 305 10^3/UL (140-415); RED BLOOD COUNT 2.67 10^6/ul (4.20-5.40); RED CELL DISTRIBUTION WIDTH 15.4 % (11.5-14.5)
[2018-01-07 06:34] LABS: WHITE BLOOD COUNT 12.4 10^3/ul (4.8-10.8)
[2018-01-07 06:58] LABS: MAGNESIUM 1.8 mg/dl (1.7-2.5)
[2018-01-07 06:58] LABS: PHOSPHORUS 3.5 mg/dl (2.5-4.9)
[2018-01-07 07:00] LABS: ANION GAP 10 (8-16); BLOOD UREA NITROGEN 23 mg/dl (7-20); CALCIUM 8.2 mg/dl (8.4-10.2); CARBON DIOXIDE 21 mmol/L (21-31); CHLORIDE 109 mmol/L (97-110); CREATININE 0.97 mg/dl (0.44-1.00); GLUCOSE 238 mg/dl (70-220); POTASSIUM 3.8 mmol/L (3.5-5.1); SODIUM 136 mmol/L (135-144)
[2018-01-07] MEDS: INSULIN ASPART [NOVOLOG] 3 ML PEN SC ×2 (07:55→17:55)
[2018-01-07] MEDS: CALCIUM CARBONATE 500 MG CHEW TAB PO ×3 (08:55→18:55)
[2018-01-07] MEDS: DONEPEZIL 5 MG TAB PO (09:00)
[2018-01-07] MEDS: MEGESTROL 40 MG TAB PO (09:00)
[2018-01-07] MEDS: SOD CHLORIDE 0.9% 500 ML IV (10:00)
[2018-01-07] MEDS: DEXTROSE 5%-0.9% NACL 1,000 ML IV ×2 (13:22→20:38)
[2018-01-07] MEDS ORDERED: AMIODARONE 900 MG in DEXTROSE 5% 482 ML IV (16:30)
[2018-01-07] MEDS: EPOETIN 10000 UNITS/ML VIAL (ONCOLOGY) SC (18:09)
[2018-01-07] MEDS: CALCIUM GLUCONATE 10% 2 GM in DEXTROSE 5% 100 ML IVPB (20:14)
[2018-01-07] MEDS: PETROLATUM 5 GM OINT TOP (20:38)
[2018-01-07] MEDS: SOD CHLORIDE 0.9% 1,000 ML IV (20:53)
[2018-01-08] MEDS: PIPER-TAZO 2.25 GM (PMX) 50 ML IVPB ×4 (00:40→17:19)
[2018-01-08] MEDS: ACCU-CHEK XX ×7 (01:00→22:00)
[2018-01-08] MEDS: FUROSEMIDE 20 MG INJ IV ×2 (06:36→17:19)
[2018-01-08] MEDS: PANTOPRAZOLE (EC) 40 MG TAB PO (06:37)
[2018-01-08 07:14] LABS: ANION GAP 11 (8-16); BLOOD UREA NITROGEN 26 mg/dl (7-20); CARBON DIOXIDE 22 mmol/L (21-31); CHLORIDE 108 mmol/L (97-110); CREATININE 1.21 mg/dl (0.44-1.00); GLUCOSE 197 mg/dl (70-220); MAGNESIUM 1.6 mg/dl (1.7-2.5); PHOSPHORUS 4.1 mg/dl (2.5-4.9); POTASSIUM 3.2 mmol/L (3.5-5.1); SODIUM 138 mmol/L (135-144)
[2018-01-08] MEDS: INSULIN ASPART [NOVOLOG] 3 ML PEN SC ×2 (07:55→17:20)
[2018-01-08] MEDS: CALCIUM CARBONATE 500 MG CHEW TAB PO ×3 (08:53→17:19)
[2018-01-08] MEDS: PETROLATUM 5 GM OINT TOP (08:54)
[2018-01-08] MEDS: DONEPEZIL 5 MG TAB PO (08:54)
[2018-01-08] MEDS: MEGESTROL 40 MG TAB PO (08:54)
[2018-01-08] MEDS: METOPROLOL (XL) 25 MG TAB PO (08:54)
[2018-01-08] MEDS: POTASSIUM CHLORIDE 100 ML IVPB ×2 (10:21→12:24)
[2018-01-08] MEDS: MAGNESIUM SULFATE 2 GM/50 ML 50 ML IVPB (15:57)
[2018-01-08] MEDS: SOD CHLORIDE 0.9% 1,000 ML IV (17:00)
[2018-01-08 17:44] LABS: INR 1.07; PT RATIO 1.1
[2018-01-08] MEDS: EPOETIN 10000 UNITS/ML VIAL (ONCOLOGY) SC (17:44)
[2018-01-08] MEDS ORDERED: Insulin NOVOLOG SS MILD Algorithm (SS with meals and bedtime) SC (21:45)
[2018-01-08] MEDS: Insulin NOVOLOG SS MILD Algorithm (NPO/TPN/ENTERAL FEEDS) SC (21:46)
[2018-01-09] MEDS: PIPER-TAZO 2.25 GM (PMX) 50 ML IVPB ×5 (00:12→23:44)
[2018-01-09] MEDS: ACCUCHECK AT 2AM (Patients on SS coverage) XX (02:22)
[2018-01-09] MEDS: SOD CHLORIDE 0.9% 1,000 ML IV ×2 (02:23→13:00)
[2018-01-09] MEDS: traMADol 50 MG TAB PO (03:27)
[2018-01-09] MEDS: LORAZEPAM 2 MG INJ IV (04:37)
[2018-01-09] MEDS: PANTOPRAZOLE 40 MG INJ IV (05:41)
[2018-01-09] MEDS: FUROSEMIDE 20 MG INJ IV ×2 (05:41→17:49)
[2018-01-09 07:05] LABS: ADD MAN DIFF? NO
[2018-01-09 07:09] LABS: WHITE BLOOD COUNT 10.1 10^3/ul (4.8-10.8)
[2018-01-09 07:09] LABS: ABNORMAL IP MESSAGE 1; BASOPHILS % 0.1 % (0.0-2.0); EOSINOPHILS # 0.1 10^3/ul (0.0-0.5); EOSINOPHILS % 0.7 % (0.0-7.0); HEMATOCRIT 25.5 % (37.0-47.0); HEMOGLOBIN 8.4 g/dl (12.0-16.0); LYMPHOCYTES # 0.6 10^3/ul (0.8-2.9); LYMPHOCYTES % 5.8 % (15.0-51.0); MEAN CORPUSCULAR HEMOGLOBIN 31.7 pg (29.0-33.0); MEAN CORPUSCULAR HGB CONC 32.9 g/dl (32.0-37.0); MEAN CORPUSCULAR VOLUME 96.2 fl (82.0-101.0); MEAN PLATELET VOLUME 9.8 fl (7.4-10.4); MONOCYTE # 0.4 10^3/ul (0.3-0.9); MONOCYTES % 4.3 % (0.0-11.0); NEUTROPHIL # 8.9 10^3/ul (1.6-7.5); NEUTROPHILS % 88.4 % (39.0-77.0); PLATELET COUNT 291 10^3/UL (140-415); RED BLOOD COUNT 2.65 10^6/ul (4.20-5.40); RED CELL DISTRIBUTION WIDTH 14.9 % (11.5-14.5)
[2018-01-09 07:14] LABS: POSITIVE DIFF @See below
[2018-01-09] MEDS: ACCU-CHEK XX ×4 (07:25→21:12)
[2018-01-09 08:15] LABS: ANION GAP 12 (8-16); BLOOD UREA NITROGEN 28 mg/dl (7-20); CALCIUM 8.5 mg/dl (8.4-10.2); CARBON DIOXIDE 21 mmol/L (21-31); CHLORIDE 108 mmol/L (97-110); CREATININE 1.31 mg/dl (0.44-1.00); GLUCOSE 162 mg/dl (70-220); MAGNESIUM 2.3 mg/dl (1.7-2.5); SODIUM 138 mmol/L (135-144)
[2018-01-09] MEDS: DONEPEZIL 5 MG TAB PO (08:18)
[2018-01-09] MEDS: CALCIUM CARBONATE 500 MG CHEW TAB PO ×3 (08:19→18:55)
[2018-01-09 08:31] LABS: POTASSIUM 2.9 mmol/L (3.5-5.1)
[2018-01-09] MEDS: METOPROLOL (XL) 25 MG TAB PO (08:37)
[2018-01-09] MEDS: MEGESTROL 40 MG TAB PO (08:38)
[2018-01-09] MEDS: Insulin NOVOLOG SS MILD Algorithm (SS with meals and bedtime) SC ×4 (08:43→21:00)
[2018-01-09] MEDS: PETROLATUM 5 GM OINT TOP (08:44)
[2018-01-09] MEDS ORDERED: POTASSIUM CHLORIDE 50 ML IVPB (09:00)
[2018-01-09] MEDS: POTASSIUM CHLORIDE (SR) 20 MEQ TAB PO (10:13)
[2018-01-09] MEDS: POTASSIUM CHLORIDE 100 ML IVPB ×4 (11:57→19:05)
[2018-01-10] MEDS: SOD CHLORIDE 0.9% 1,000 ML IV ×2 (01:39→09:00)
[2018-01-10] MEDS: ACCUCHECK AT 2AM (Patients on SS coverage) XX (02:30)
[2018-01-10] MEDS: PIPER-TAZO 2.25 GM (PMX) 50 ML IVPB ×3 (05:08→18:53)
[2018-01-10] MEDS: PANTOPRAZOLE 40 MG INJ IV (05:08)
[2018-01-10] MEDS: FUROSEMIDE 20 MG INJ IV ×2 (05:08→18:54)
[2018-01-10] MEDS: ACCU-CHEK XX ×4 (07:25→20:29)
[2018-01-10] MEDS: Insulin NOVOLOG SS MILD Algorithm (SS with meals and bedtime) SC ×4 (07:25→20:28)
[2018-01-10] MEDS: CALCIUM CARBONATE 500 MG CHEW TAB PO ×3 (08:55→18:54)
[2018-01-10] MEDS: DONEPEZIL 5 MG TAB PO (08:55)
[2018-01-10] MEDS: METOPROLOL (XL) 25 MG TAB PO (08:56)
[2018-01-10] MEDS: MEGESTROL 40 MG TAB PO (09:00)
[2018-01-10] MEDS: PETROLATUM 5 GM OINT TOP (09:00)
[2018-01-10] MEDS: LIDOCAINE 1% (MPF) 5 ML VIAL (11:49)
[2018-01-10] MEDS: PHENYLephrine (100 MCG/ML) 5ML SYG (11:51)
[2018-01-10] MEDS: PROPOFOL 0 ML (11:52)
[2018-01-10] MEDS: ROCURONIUM 50 MG INJ (12:12)
[2018-01-10] MEDS: FENTAnyl 50 MCG/ML VIAL (12:12)
[2018-01-10] MEDS: SUGAMMADEX SODIUM 200 MG/2 ML VIAL IV (12:13)
[2018-01-10 12:22] LABS: PROCALCITONIN 1.25 ng/mL (<0.10)
[2018-01-10] MEDS ORDERED: FENTAnyl 50 MCG/ML VIAL IV ×2 (13:00)
[2018-01-10] MEDS ORDERED: LABETALOL HCL 20MG INJ IV (13:00)
[2018-01-10] MEDS ORDERED: ONDANSETRON 4 MG INJ IV (13:00)
[2018-01-10] MEDS ORDERED: HYDROmorphONE 1 MG/5 ML IV SYRINGE IV (13:00)
[2018-01-10 15:05] LABS: ANION GAP 16 (8-16); BLOOD UREA NITROGEN 30 mg/dl (7-20); CALCIUM 8.8 mg/dl (8.4-10.2); CARBON DIOXIDE 19 mmol/L (21-31); CHLORIDE 109 mmol/L (97-110); CREATININE 1.53 mg/dl (0.44-1.00); GLUCOSE 110 mg/dl (70-220); POTASSIUM 3.9 mmol/L (3.5-5.1); SODIUM 140 mmol/L (135-144)
[2018-01-10 15:07] LABS: ALBUMIN 2.4 g/dl (3.3-4.9)
[2018-01-10 15:07] LABS: MAGNESIUM 2.4 mg/dl (1.7-2.5)
[2018-01-10] MEDS: GUAIFENESIN/DM 5ML CUP PO (21:48)
[2018-01-11] MEDS: PIPER-TAZO 2.25 GM (PMX) 50 ML IVPB ×5 (00:27→23:06)
[2018-01-11] MEDS: ACCUCHECK AT 2AM (Patients on SS coverage) XX (02:00)
[2018-01-11] MEDS: SOD CHLORIDE 0.9% 1,000 ML IV ×2 (04:17→22:29)
[2018-01-11] MEDS: traMADol 50 MG TAB PO (04:22)
[2018-01-11] MEDS: PANTOPRAZOLE 40 MG INJ IV (05:40)
[2018-01-11] MEDS: FUROSEMIDE 20 MG INJ IV ×2 (05:41→17:26)
[2018-01-11] MEDS: Insulin NOVOLOG SS MILD Algorithm (SS with meals and bedtime) SC ×4 (07:25→21:00)
[2018-01-11] MEDS: ACCU-CHEK XX ×4 (07:25→21:00)
[2018-01-11] MEDS: CALCIUM CARBONATE 500 MG CHEW TAB PO ×3 (08:55→18:55)
[2018-01-11] MEDS: METOPROLOL (XL) 25 MG TAB PO (09:00)
[2018-01-11] MEDS: MEGESTROL 40 MG TAB PO (09:00)
[2018-01-11] MEDS: PETROLATUM 5 GM OINT TOP (09:00)
[2018-01-11] MEDS: DONEPEZIL 5 MG TAB PO (09:00)
[2018-01-11] MEDS: LORAZEPAM 2 MG INJ IV ×2 (16:18→22:26)
[2018-01-12] MEDS: ACCUCHECK AT 2AM (Patients on SS coverage) XX (02:00)
[2018-01-12] MEDS: PANTOPRAZOLE 40 MG INJ IV (05:08)
[2018-01-12] MEDS: PIPER-TAZO 2.25 GM (PMX) 50 ML IVPB ×4 (05:08→23:27)
[2018-01-12 06:13] LABS: ADD MAN DIFF? NO
[2018-01-12 06:14] LABS: WHITE BLOOD COUNT 11.2 10^3/ul (4.8-10.8)
[2018-01-12 06:14] LABS: BASOPHILS % 0.3 % (0.0-2.0); EOSINOPHILS % 0.4 % (0.0-7.0); HEMATOCRIT 26.8 % (37.0-47.0); HEMOGLOBIN 8.4 g/dl (12.0-16.0); LYMPHOCYTES # 0.6 10^3/ul (0.8-2.9); LYMPHOCYTES % 5.6 % (15.0-51.0); MEAN CORPUSCULAR HGB CONC 31.3 g/dl (32.0-37.0); MEAN CORPUSCULAR VOLUME 98.9 fl (82.0-101.0); MEAN PLATELET VOLUME 9.9 fl (7.4-10.4); MONOCYTE # 0.4 10^3/ul (0.3-0.9); MONOCYTES % 3.2 % (0.0-11.0); NUCLEATED RED BLOOD CELLS% 0.2 /100WBC (0.0-0.0); PLATELET COUNT 231 10^3/UL (140-415); RED BLOOD COUNT 2.71 10^6/ul (4.20-5.40); RED CELL DISTRIBUTION WIDTH 15.9 % (11.5-14.5)
[2018-01-12] MEDS: LORAZEPAM 2 MG INJ IV (06:22)
[2018-01-12 06:42] LABS: ALANINE AMINOTRANSFERASE 23 IU/L (13-69); ALBUMIN 2.1 g/dl (3.3-4.9); ALBUMIN/GLOBULIN RATIO 0.77; ALKALINE PHOSPHATASE 50 IU/L (42-121); ANION GAP 13 (8-16); ASPARTATE AMINO TRANSFERASE 11 IU/L (15-46); BILIRUBIN,INDIRECT 0.2 mg/dl (0-1.1); BILIRUBIN,TOTAL 0.2 mg/dl (0.2-1.3); BLOOD UREA NITROGEN 30 mg/dl (7-20); CARBON DIOXIDE 21 mmol/L (21-31); CHLORIDE 110 mmol/L (97-110); CREATININE 1.29 mg/dl (0.44-1.00); GLUCOSE 142 mg/dl (70-220); SODIUM 142 mmol/L (135-144); TOTAL PROTEIN 4.8 g/dl (6.1-8.1)
[2018-01-12 06:47] LABS: B-TYPE NATRIURETIC PEPTIDE 33100 PG/ML (0-450); POTASSIUM 2.4 mmol/L (3.5-5.1)
[2018-01-12] MEDS: ACCU-CHEK XX ×4 (07:25→21:00)
[2018-01-12 07:45] LABS: AADO2 Arterial 505.1 mmHg (7.0-24.0); Allen Test ACCEPTAB; Arterial Base Excess -5.9 mmol/L (-3.0-3); Arterial Blood Gas Oxygen Sat 98.8 mmHG (95.0-100.0); Arterial COHb 0.3 % (0.0-3.0); Arterial Fraction of Oxyhgb 98.1 % (93.0-99.0); Arterial HCO3 19.4 mmol/L (22.0-26.0); Arterial MetHb 0.4 % (0.0-1.5); Arterial pCO2 37.3 mmhg (35-45); MODE MASK - NRB; Site Right Radial
[2018-01-12] MEDS: Insulin NOVOLOG SS MILD Algorithm (SS with meals and bedtime) SC ×4 (08:27→21:00)
[2018-01-12] MEDS: CALCIUM CARBONATE 500 MG CHEW TAB PO ×3 (08:55→17:49)
[2018-01-12] MEDS: METOPROLOL (XL) 25 MG TAB PO (09:00)
[2018-01-12] MEDS: FUROSEMIDE 20 MG INJ IV (09:00)
[2018-01-12] MEDS: MEGESTROL 40 MG TAB PO (09:00)
[2018-01-12] MEDS: PETROLATUM 5 GM OINT TOP (09:00)
[2018-01-12] MEDS: DONEPEZIL 5 MG TAB PO (09:00)
[2018-01-12 10:47] LABS: Allen Test ACCEPTAB; Arterial Base Excess -4.1 mmol/L (-3.0-3); Arterial Blood Gas Oxygen Sat 98.7 mmHG (95.0-100.0); Arterial COHb 0.3 % (0.0-3.0); Arterial Fraction of Oxyhgb 98.1 % (93.0-99.0); Arterial HCO3 20.4 mmol/L (22.0-26.0); Arterial MetHb 0.3 % (0.0-1.5); Arterial Total Hemglobin 10.7 g/dl (12.0-18.0); Arterial pCO2 35.3 mmhg (35-45); MODE MASK - NRB; Site Right Radial
[2018-01-12 10:57] LABS: ADD MAN DIFF? NO
[2018-01-12] MEDS: POTASSIUM CHLORIDE 30 MEQ in SOD CHLORIDE 0.9% 1,000 ML IV (11:00)
[2018-01-12 11:02] LABS: WHITE BLOOD COUNT 11.4 10^3/ul (4.8-10.8)
[2018-01-12 11:02] LABS: BASOPHILS % 0.2 % (0.0-2.0); EOSINOPHILS % 0.3 % (0.0-7.0); HEMATOCRIT 26.6 % (37.0-47.0); HEMOGLOBIN 8.4 g/dl (12.0-16.0); LYMPHOCYTES # 0.7 10^3/ul (0.8-2.9); LYMPHOCYTES % 6.5 % (15.0-51.0); MEAN CORPUSCULAR HEMOGLOBIN 31.3 pg (29.0-33.0); MEAN CORPUSCULAR HGB CONC 31.6 g/dl (32.0-37.0); MEAN CORPUSCULAR VOLUME 99.3 fl (82.0-101.0); MEAN PLATELET VOLUME 10.1 fl (7.4-10.4); MONOCYTE # 0.4 10^3/ul (0.3-0.9); MONOCYTES % 3.3 % (0.0-11.0); NEUTROPHILS % 87.7 % (39.0-77.0); NUCLEATED RED BLOOD CELLS% 0.3 /100WBC (0.0-0.0); PLATELET COUNT 227 10^3/UL (140-415); RED BLOOD COUNT 2.68 10^6/ul (4.20-5.40); RED CELL DISTRIBUTION WIDTH 15.9 % (11.5-14.5)
[2018-01-12 11:05] LABS: POSITIVE DIFF @See below
[2018-01-12] MEDS: traMADol 50 MG TAB PO ×3 (11:12→18:47)
[2018-01-12 11:20] LABS: ALANINE AMINOTRANSFERASE 24 IU/L (13-69); ALBUMIN 2.1 g/dl (3.3-4.9); ALBUMIN/GLOBULIN RATIO 0.72; ALKALINE PHOSPHATASE 51 IU/L (42-121); ANION GAP 12 (8-16); ASPARTATE AMINO TRANSFERASE 11 IU/L (15-46); BILIRUBIN,INDIRECT 0.2 mg/dl (0-1.1); BILIRUBIN,TOTAL 0.2 mg/dl (0.2-1.3); BLOOD UREA NITROGEN 29 mg/dl (7-20); CALCIUM 8.2 mg/dl (8.4-10.2); CARBON DIOXIDE 23 mmol/L (21-31); CHLORIDE 110 mmol/L (97-110); CREATININE 1.29 mg/dl (0.44-1.00); GLUCOSE 123 mg/dl (70-220); SODIUM 143 mmol/L (135-144)
[2018-01-12 11:22] LABS: POTASSIUM 2.4 mmol/L (3.5-5.1)
[2018-01-12 11:51] LABS: POTASSIUM,URINE RANDOM 25.3 mmol/L (25-125)
[2018-01-12 11:51] LABS: SODIUM,URINE RANDOM 114 mmol/L (30-90)
[2018-01-12] MEDS ORDERED: NORepinephrine 8MG/250 ML (PMX 250 ML (12:00)
[2018-01-12] MEDS: POTASSIUM CHLORIDE 50 ML IVPB ×3 (12:00→13:28)
[2018-01-12 13:20] LABS: ANISOCYTOSIS 1+ (0-0); BAND NEUTROPHILS #M 0.1 10^3/ul (0.0-0.6); BAND NEUTROPHILS % (M) 1 % (0-4); BASOPHIL #M 0.1 10^3/ul (0.0-0.0); BASOPHILS % (M) 1 % (0-2); EOSINOPHILS % (M) 1 % (0-7); LYMPHOCYTES #M 0.3 10^3/ul (0.8-2.9); LYMPHOCYTES % (M) 3 % (15-51); MONOCYTE #M 0.2 10^3/ul (0.3-0.9); MONOCYTES % (M) 2 % (0-11); MYELOCYTES #M 0.2 10^3/ul (0.0-0.0); MYELOCYTES % (M) 2 % (0-0); OVALOCYTES 1+ (0-0); PLATELET ESTIMATE NORMAL; POIKILOCYTOSIS 1+ (0-0); SEG NEUT #M 10.3 10^3/ul (1.6-7.5); SEGMENTED NEUTROPHILS (M) % 90 % (39-77); SMUDGE%M 4 % (0-0)
[2018-01-12] MEDS: LACTATED RINGER'S 500 ML IV (13:28)
[2018-01-12 18:14] LABS: ADD MAN DIFF? NO
[2018-01-12 18:19] LABS: ABNORMAL IP MESSAGE 1; BASOPHILS % 0.3 % (0.0-2.0); EOSINOPHILS % 0.3 % (0.0-7.0); HEMATOCRIT 25.8 % (37.0-47.0); HEMOGLOBIN 8.3 g/dl (12.0-16.0); LYMPHOCYTES # 0.5 10^3/ul (0.8-2.9); MEAN CORPUSCULAR HEMOGLOBIN 32.2 pg (29.0-33.0); MEAN CORPUSCULAR HGB CONC 32.2 g/dl (32.0-37.0); MEAN PLATELET VOLUME 10.6 fl (7.4-10.4); MONOCYTE # 0.3 10^3/ul (0.3-0.9); MONOCYTES % 3.2 % (0.0-11.0); NEUTROPHIL # 9.5 10^3/ul (1.6-7.5); NEUTROPHILS % 89.5 % (39.0-77.0); NUCLEATED RED BLOOD CELLS # 0.1 10^3/ul (0.0-0.0); NUCLEATED RED BLOOD CELLS% 0.5 /100WBC (0.0-0.0); PLATELET COUNT 236 10^3/UL (140-415); RED BLOOD COUNT 2.58 10^6/ul (4.20-5.40); RED CELL DISTRIBUTION WIDTH 16.1 % (11.5-14.5)
[2018-01-12 18:19] LABS: WHITE BLOOD COUNT 10.6 10^3/ul (4.8-10.8)
[2018-01-12 18:28] LABS: POSITIVE DIFF @See below
[2018-01-12 18:34] LABS: ANION GAP 14 (8-16); BLOOD UREA NITROGEN 30 mg/dl (7-20); CALCIUM 8.2 mg/dl (8.4-10.2); CARBON DIOXIDE 20 mmol/L (21-31); CHLORIDE 110 mmol/L (97-110); CREATININE 1.32 mg/dl (0.44-1.00); GLUCOSE 114 mg/dl (70-220); POTASSIUM 3.1 mmol/L (3.5-5.1); SODIUM 141 mmol/L (135-144)
[2018-01-12] MEDS: SOD CHLORIDE 0.9% 1,000 ML IV (21:00)
[2018-01-13] MEDS: ACCUCHECK AT 2AM (Patients on SS coverage) XX (02:00)
[2018-01-13 04:55] LABS: AADO2 Arterial 75.4 mmHg (7.0-24.0); Allen Test ACCEPTAB; Arterial Base Excess -7.4 mmol/L (-3.0-3); Arterial Blood Gas Oxygen Sat 95.1 mmHG (95.0-100.0); Arterial COHb 0.7 % (0.0-3.0); Arterial Fraction of Oxyhgb 94.1 % (93.0-99.0); Arterial HCO3 17.2 mmol/L (22.0-26.0); Arterial MetHb 0.3 % (0.0-1.5); Arterial Total Hemglobin 8.6 g/dl (12.0-18.0); Arterial pCO2 31.1 mmhg (35-45); MODE NASAL CANNULA; Site Right Radial
[2018-01-13] MEDS: PIPER-TAZO 2.25 GM (PMX) 50 ML IVPB ×4 (05:00→23:57)
[2018-01-13] MEDS: PANTOPRAZOLE 40 MG INJ IV (05:00)
[2018-01-13 05:23] LABS: ADD MAN DIFF? NO
[2018-01-13 05:26] LABS: BASOPHILS % 0.2 % (0.0-2.0); EOSINOPHILS # 0.1 10^3/ul (0.0-0.5); EOSINOPHILS % 0.7 % (0.0-7.0); HEMATOCRIT 24.7 % (37.0-47.0); HEMOGLOBIN 7.8 g/dl (12.0-16.0); LYMPHOCYTES # 0.8 10^3/ul (0.8-2.9); LYMPHOCYTES % 6.9 % (15.0-51.0); MEAN CORPUSCULAR HEMOGLOBIN 31.7 pg (29.0-33.0); MEAN CORPUSCULAR HGB CONC 31.6 g/dl (32.0-37.0); MEAN CORPUSCULAR VOLUME 100.4 fl (82.0-101.0); MEAN PLATELET VOLUME 10.7 fl (7.4-10.4); MONOCYTE # 0.4 10^3/ul (0.3-0.9); MONOCYTES % 3.8 % (0.0-11.0); NEUTROPHIL # 9.7 10^3/ul (1.6-7.5); NEUTROPHILS % 86.2 % (39.0-77.0); NUCLEATED RED BLOOD CELLS # 0.1 10^3/ul (0.0-0.0); NUCLEATED RED BLOOD CELLS% 0.5 /100WBC (0.0-0.0); PLATELET COUNT 243 10^3/UL (140-415); RED BLOOD COUNT 2.46 10^6/ul (4.20-5.40); RED CELL DISTRIBUTION WIDTH 16.4 % (11.5-14.5)
[2018-01-13 05:26] LABS: WHITE BLOOD COUNT 11.2 10^3/ul (4.8-10.8)
[2018-01-13 05:50] LABS: LACTIC ACID 1.2 mmol/L (0.5-2.0)
[2018-01-13 05:51] LABS: ALANINE AMINOTRANSFERASE 12 IU/L (13-69); ALBUMIN 2.3 g/dl (3.3-4.9); ALBUMIN/GLOBULIN RATIO 0.88; ALKALINE PHOSPHATASE 46 IU/L (42-121); ANION GAP 13 (8-16); ASPARTATE AMINO TRANSFERASE 11 IU/L (15-46); BILIRUBIN,INDIRECT 0.1 mg/dl (0-1.1); BILIRUBIN,TOTAL 0.1 mg/dl (0.2-1.3); BLOOD UREA NITROGEN 28 mg/dl (7-20); CALCIUM 8.1 mg/dl (8.4-10.2); CARBON DIOXIDE 20 mmol/L (21-31); CHLORIDE 114 mmol/L (97-110); CREATININE 1.31 mg/dl (0.44-1.00); GLUCOSE 95 mg/dl (70-220); MAGNESIUM 2.1 mg/dl (1.7-2.5); POTASSIUM 3.2 mmol/L (3.5-5.1); SODIUM 144 mmol/L (135-144); TOTAL PROTEIN 4.9 g/dl (6.1-8.1)
[2018-01-13] MEDS: SOD CHLORIDE 0.9% 1,000 ML IV (06:31)
[2018-01-13] MEDS: Insulin NOVOLOG SS MILD Algorithm (SS with meals and bedtime) SC ×4 (06:38→22:14)
[2018-01-13 06:40] LABS: PREALBUMIN 5.9 mg/dl (17.6-36.0)
[2018-01-13] MEDS: ACCU-CHEK XX ×4 (06:47→21:01)
[2018-01-13] MEDS: GUAIFENESIN/DM 5ML CUP PO (07:41)
[2018-01-13] MEDS: DONEPEZIL 5 MG TAB PO (07:41)
[2018-01-13] MEDS: FUROSEMIDE 20 MG INJ IV (07:41)
[2018-01-13] MEDS: CALCIUM CARBONATE 500 MG CHEW TAB PO ×3 (07:41→19:06)
[2018-01-13] MEDS: traMADol 50 MG TAB PO ×2 (07:42→18:20)
[2018-01-13] MEDS: POTASSIUM CHLORIDE 100 ML IVPB (07:42)
[2018-01-13] MEDS: PETROLATUM 5 GM OINT TOP (09:00)
[2018-01-13] MEDS: MEGESTROL 40 MG TAB PO (11:00)
[2018-01-13] MEDS: METOPROLOL (XL) 25 MG TAB PO (11:00)
[2018-01-13] MEDS: ALBUMIN HUMAN 25% 100 ML IV ×2 (16:30→17:30)
[2018-01-13 18:41] LABS: NIL 0.04 IU/mL; QUANTIFERON(R)-TB GOLD INDETERMINATE (NEGATIVE); TB-NIL <0.00 IU/mL
[2018-01-13] MEDS: CALCIUM GLUCONATE 10% 2 GM in DEXTROSE 5% 100 ML IVPB (20:59)
[2018-01-13] MEDS: EPOETIN 10000 UNITS/ML VIAL (ONCOLOGY) SC ×2 (21:12→21:14)
[2018-01-14] MEDS: PANTOPRAZOLE 40 MG INJ IV (05:41)
[2018-01-14] MEDS: PIPER-TAZO 2.25 GM (PMX) 50 ML IVPB ×3 (05:42→17:27)
[2018-01-14 06:08] LABS: ADD MAN DIFF? NO
[2018-01-14] MEDS: traMADol 50 MG TAB PO (06:09)
[2018-01-14] MEDS: SOD CHLORIDE 0.9% 1,000 ML IV (06:13)
[2018-01-14 06:14] LABS: WHITE BLOOD COUNT 11.1 10^3/ul (4.8-10.8)
[2018-01-14 06:14] LABS: ABNORMAL IP MESSAGE 1; BASOPHILS % 0.2 % (0.0-2.0); EOSINOPHILS % 0.1 % (0.0-7.0); HEMATOCRIT 25.2 % (37.0-47.0); HEMOGLOBIN 7.8 g/dl (12.0-16.0); LYMPHOCYTES # 0.3 10^3/ul (0.8-2.9); LYMPHOCYTES % 3.1 % (15.0-51.0); MEAN CORPUSCULAR HEMOGLOBIN 32.1 pg (29.0-33.0); MEAN CORPUSCULAR VOLUME 103.7 fl (82.0-101.0); MEAN PLATELET VOLUME 10.4 fl (7.4-10.4); MONOCYTE # 0.4 10^3/ul (0.3-0.9); MONOCYTES % 3.5 % (0.0-11.0); NEUTROPHILS % 90.1 % (39.0-77.0); NUCLEATED RED BLOOD CELLS # 0.1 10^3/ul (0.0-0.0); NUCLEATED RED BLOOD CELLS% 0.5 /100WBC (0.0-0.0); PLATELET COUNT 233 10^3/UL (140-415); RED BLOOD COUNT 2.43 10^6/ul (4.20-5.40); RED CELL DISTRIBUTION WIDTH 17.1 % (11.5-14.5)
[2018-01-14 06:21] LABS: POSITIVE DIFF @See below
[2018-01-14 06:49] LABS: ANION GAP 14 (8-16); BLOOD UREA NITROGEN 29 mg/dl (7-20); CALCIUM 9.1 mg/dl (8.4-10.2); CARBON DIOXIDE 20 mmol/L (21-31); CHLORIDE 114 mmol/L (97-110); CREATININE 1.59 mg/dl (0.44-1.00); GLUCOSE 143 mg/dl (70-220); MAGNESIUM 2.2 mg/dl (1.7-2.5); POTASSIUM 3.1 mmol/L (3.5-5.1); SODIUM 145 mmol/L (135-144)
[2018-01-14] MEDS: ACCU-CHEK XX ×3 (07:25→17:25)
[2018-01-14] MEDS: FUROSEMIDE 20 MG INJ IV (08:19)
[2018-01-14] MEDS: MEGESTROL 40 MG TAB PO (08:19)
[2018-01-14] MEDS: DONEPEZIL 5 MG TAB PO (08:19)
[2018-01-14] MEDS: CALCIUM CARBONATE 500 MG CHEW TAB PO ×3 (08:19→17:27)
[2018-01-14] MEDS: METOPROLOL (XL) 25 MG TAB PO (08:20)
[2018-01-14] MEDS: PETROLATUM 5 GM OINT TOP (08:20)
[2018-01-14] MEDS: Insulin NOVOLOG SS MILD Algorithm (SS with meals and bedtime) SC ×3 (08:23→17:25)
[2018-01-14] MEDS: POTASSIUM CHLORIDE 100 ML IVPB ×2 (09:42→10:30)
[2018-01-14] MEDS ORDERED: morphine (DRIP) 100 MG/100 ML 100 ML IV (12:30)
[2018-01-16 12:27] LABS: PROCALCITONIN 0.82 ng/mL (<0.10)
== END 2018-01-14 18:18 | disposition expired | DRG 193 ==
LOC: TEL 01-07 09:09 → ICU 01-12 09:00 → TEL 01-14 03:08 → E/R 08:02 → 2NE 11:14
PROC: 0W993ZX Drainage of Right Pleural Cavity, Percutaneous Approach, Diagnostic (ICD-10-PCS; principal; 2018-01-04)
PROC: 02HV33Z Insertion of Infusion Device into Superior Vena Cava, Percutaneous Approach (ICD-10-PCS; 2018-01-07)
PROC: 0BBG3ZX Excision of Left Upper Lung Lobe, Percutaneous Approach, Diagnostic (ICD-10-PCS; 2018-01-10)
DX: J18.9 Pneumonia, unspecified organism (principal); A41.9 Sepsis, unspecified organism; J96.01 Acute respiratory failure with hypoxia; G92 Toxic encephalopathy; R57.9 Shock, unspecified; E44.0 Moderate protein-calorie malnutrition; E87.2 Acidosis; C64.2 Malignant neoplasm of left kidney, except renal pelvis; C78.00 Secondary malignant neoplasm of unspecified lung; J91.0 Malignant pleural effusion; I47.2 Ventricular tachycardia; N17.9 Acute kidney failure, unspecified; K56.7 Ileus, unspecified; Z68.1 Body mass index [BMI] 19.9 or less, adult; D51.9 Vitamin B12 deficiency anemia, unspecified; D64.9 Anemia, unspecified; E11.9 Type 2 diabetes mellitus without complications; E87.6 Hypokalemia; F09 Unspecified mental disorder due to known physiological condition; F32.9 Major depressive disorder, single episode, unspecified; F03.90 Unspecified dementia, unspecified severity, without behavioral disturbance, psychotic disturbance, mood disturbance, and anxiety; H91.90 Unspecified hearing loss, unspecified ear; I11.0 Hypertensive heart disease with heart failure; I50.9 Heart failure, unspecified; J44.9 Chronic obstructive pulmonary disease, unspecified; K21.9 Gastro-esophageal reflux disease without esophagitis; M81.0 Age-related osteoporosis without current pathological fracture; R62.7 Adult failure to thrive; Z66 Do not resuscitate; Z87.891 Personal history of nicotine dependence
CPT/HCPCS: 32555; 36415; 36569; 36600; 70450; 70470; 71045; 71260; 73030-RT; 73510; 74177; 76604; 76937; 77012; 80048; 80053; 82040; 82436; 82607; 82728; 82746; 82803; 82945; 82962; 83540; 83605; 83615; 83735; 83880; 84100; 84133; 84134; 84145; 84157; 84300; 84478; 84484; 85025; 85610; 85730; 86480; 86635; 86850; 86900; 86901; 87040; 87070; 87075; 87081; 87102; 87116; 88104; 88305; 88307; 88331; 89051; 92526; 92610; 93005; 93306; 94664; 94760; 96374; 96375; 97110; 97163; 97530; 99291-25; J0885